=== PATIENT | male | born 1970 | race Hispanic/Latino ===

== ENCOUNTER 2020-06-14 14:26 | Emergency (ER) | payer SELFPAY ==
[2020-06-14 15:34] LABS: Alanine Aminotransferase 68 units/L (7-56); Albumin 2.8 g/dL (3.9-5); Blood Urea Nitrogen 2 mg/dL (9-20); Calcium 8.2 mg/dL (8.4-10.2); Hemolysis Index 1
[2020-06-14 15:39] LABS: Hemoglobin 10.9 gm/dl (11.8-15.2); Mean Corpuscular HGB Conc 34 % (32-34); Mean Corpuscular Volume 106 fl (84-94); Platelet Count 207 K/mm3 (140-440); Red Blood Count 3.02 M/mm3 (3.65-5.03); Red Cell Distribution Width 15.2 % (13.2-15.2)
[2020-06-14 15:53] LABS: BUN/Creatinine Ratio 3
[2020-06-14 16:29] LABS: Bilirubin,Urine NEG (Negative); Blood,Urine NEG (Negative); Color,Urine Yellow (Yellow); Protein,Urine <15 mg/dL mg/dL (Negative); Urobilinogen,Urine < 2.0 mg/dL (<2.0); WBC,Urine < 1.0 /HPF (0.0-6.0)
--- NOTE | 2020-06-14 17:09 | Emergency Department Report ---
ED General Adult HPI - General Chief complaint: Abdominal Pain Stated complaint: STOMACH PAIN, NAUSEA, Time Seen by Provider: 06/14/20 15:36 Source: patient Mode of arrival: Ambulatory Limitations: No Limitations - History of Present Illness Initial comments: 49-year-old -N[place]alese male patient without prior medical history presents with complaints of abdominal distention, abdominal mass, nausea, and decreased appetite for 4 months and bilateral lower leg edema x3 weeks. Patient states he is having multiple bowel movements a day of which some are very light in color. He denies any melena/hematochezia, vomiting, fever/chills/sweats, chest pain, or shortness of breath. He admits to drinking about 12 beers a day for many years. He states his father had history of liver cancer due to alcoholism. He states there is some abdominal pain that is constant in dull in nature. He denies having noticed any yellowing of his skin or eyes. History of inguinal hernia repair -: Gradual - Related Data Previous Rx's Medication Instructions Recorded Last Taken Type Pantoprazole [Protonix] 40 mg PO QAM #30 tablet 06/14/20 Unknown Rx traMADoL [Ultram 50 MG tab] 50 mg PO Q8HR PRN #6 tablet 06/14/20 Unknown Rx Allergies Allergy/AdvReac Type Severity Reaction Status Date / Time No Known Allergies Allergy Unverified 06/14/20 14:50 ED Review of Systems ROS: Stated complaint: STOMACH PAIN, NAUSEA, Other details as noted in HPI Constitutional: malaise. denies: chills, diaphoresis, fever, weakness Eyes: denies: eye pain, vision change Respiratory: denies: cough, shortness of breath Cardiovascular: denies: chest pain Gastrointestinal: abdominal pain, nausea. denies: vomiting, diarrhea, constipation, hematemesis, melena, hematochezia Genitourinary: denies: urgency, dysuria, frequency, hematuria Musculoskeletal: denies: back pain, joint swelling Skin: denies: rash, lesions, change in color Neurological: denies: headache, numbness, paresthesias Hematological/Lymphatic: denies: easy bleeding, easy bruising ED Past Medical Hx - Past Medical History Previous Medical History?: Yes Hx Hypertension: Yes - Surgical History Past Surgical History?: Yes Additional Surgical History: hernia - Social History Smoking Status: Never Smoker Substance Use Type: Alcohol - Medications Home Medications: Home Medications Medication Instructions Recorded Confirmed Last Taken Type Pantoprazole [Protonix] 40 mg PO QAM #30 tablet 06/14/20 Unknown Rx traMADoL [Ultram 50 MG tab] 50 mg PO Q8HR PRN #6 tablet 06/14/20 Unknown Rx ED Physical Exam - General Limitations: No Limitations General appearance: alert, in no apparent distress - Head Head exam: Present: atraumatic, normocephalic - Eye Eye exam: Present: normal appearance, scleral icterus (Mild bilateral) - ENT ENT exam: Present: mucous membranes moist - Neck Neck exam: Present: normal inspection. Absent: tenderness, full ROM, lymphadenopathy - Respiratory Respiratory exam: Present: normal lung sounds bilaterally. Absent: respiratory distress - Cardiovascular Cardiovascular Exam: Present: regular rate, normal rhythm. Absent: systolic murmur, diastolic murmur, rubs, gallop - GI/Abdominal GI/Abdominal exam: Present: distended, tenderness (Mild epigastric and right upper quadrant), normal bowel sounds, mass (Firm epigastric/RUQ mass noted). Absent: guarding, rebound, rigid - Extremities Exam Extremities exam: Present: full ROM, other (Bilateral lower leg 3+ pitting edema noted without skin changes) - Back Exam Back exam: Present: full ROM - Neurological Exam Neurological exam: Present: alert, oriented X3, normal gait - Psychiatric Psychiatric exam: Present: normal affect, normal mood - Skin Skin exam: Present: warm, dry, intact, normal color. Absent: rash, erythema, ecchymosis ED Course Vital Signs 06/14/20 06/14/20 14:49 20:00 Temperature 98.1 F 98.1 F Pulse Rate 94 H 89 Respiratory 16 14 Rate Blood Pressure 124/80 107/70 O2 Sat by Pulse 99 99 Oximetry ED Medical Decision Making - Lab Data Result diagrams: 06/14/20 14:57 06/14/20 14:57 Lab Results 06/14/20 06/14/20 06/14/20 Range/Units 14:57 14:57 14:57 WBC 7.7 (4.5-11.0) K/mm3 RBC 3.02 L (3.65-5.03) M/mm3 Hgb 10.9 L (11.8-15.2) gm/dl Hct 32.0 L (35.5-45.6) % MCV 106 H (84-94) fl MCH 36 H (28-32) pg MCHC 34 (32-34) % RDW 15.2 (13.2-15.2) % Plt Count 207 (140-440) K/mm3 Add Manual Diff Complete Total Counted 100 Seg Neuts % (Manual) 86.0 H (40.0-70.0) % Band Neutrophils % 2.0 % Lymphocytes % (Manual) 8.0 L (13.4-35.0) % Reactive Lymphs % (Man) 0 % Monocytes % (Manual) 3.0 (0.0-7.3) % Eosinophils % (Manual) 0 (0.0-4.3) % Basophils % (Manual) 1.0 (0.0-1.8) % Metamyelocytes % 0 % Myelocytes % 0 % Promyelocytes % 0 % Blast Cells % 0 % Nucleated RBC % Not Reportable Seg Neutrophils # Man 6.6 (1.8-7.7) K/mm3 Band Neutrophils # 0.2 K/mm3 Lymphocytes # (Manual) 0.6 L (1.2-5.4) K/mm3 Abs React Lymphs (Man) 0.0 K/mm3 Monocytes # (Manual) 0.2 (0.0-0.8) K/mm3 Eosinophils # (Manual) 0.0 (0.0-0.4) K/mm3 Basophils # (Manual) 0.1 (0.0-0.1) K/mm3 Metamyelocytes # 0.0 K/mm3 Myelocytes # 0.0 K/mm3 Promyelocytes # 0.0 K/mm3 Blast Cells # 0.0 K/mm3 WBC Morphology Not Reportable Hypersegmented Neuts Not Reportable Hyposegmented Neuts Not Reportable Hypogranular Neuts Not Reportable Smudge Cells Not Reportable Toxic Granulation Not Reportable Toxic Vacuolation Not Reportable Dohle Bodies Not Reportable Pelger-Huet Anomaly Not Reportable Nereyda Rods Not Reportable Platelet Estimate Consistent w auto Clumped Platelets Not Reportable Plt Clumps, EDTA Not Reportable Large Platelets Not Reportable Giant Platelets Not Reportable Platelet Satelliting Not Reportable Plt Morphology Comment Not Reportable RBC Morphology Normal Dimorphic RBCs Not Reportable Polychromasia Not Reportable Hypochromasia Not Reportable Poikilocytosis Not Reportable Anisocytosis Not Reportable Microcytosis Not Reportable Macrocytosis Not Reportable Spherocytes Not Reportable Pappenheimer Bodies Not Reportable Sickle Cells Not Reportable Target Cells Not Reportable Tear Drop Cells Not Reportable Ovalocytes Not Reportable Helmet Cells Not Reportable [place] Bodies Not Reportable [place] Rings Not Reportable [place] Cells Not Reportable Bite Cells Not Reportable Crenated Cell Not Reportable Elliptocytes Not Reportable Acanthocytes (Spur) Not Reportable Rouleaux Not Reportable Hemoglobin C Crystals Not Reportable Schistocytes Not Reportable Malaria parasites Not Reportable Norberto Bodies Not Reportable Hem Pathologist Commnt No PT (12.2-14.9) Sec. INR (0.87-1.13) APTT (24.2-36.6) Sec. Sodium 131 L (137-145) mmol/L Potassium 3.5 L (3.6-5.0) mmol/L Chloride 91.2 L (98-107) mmol/L Carbon Dioxide 23 (22-30) mmol/L Anion Gap 20 mmol/L BUN 2 L (9-20) mg/dL Creatinine 0.6 L (0.8-1.3) mg/dL Estimated GFR > 60 ml/min BUN/Creatinine Ratio 3 % Glucose 125 H (75-100) mg/dL Calcium 8.2 L (8.4-10.2) mg/dL Total Bilirubin 4.10 H (0.1-1.2) mg/dL AST 272 H (5-40) units/L ALT 68 H (7-56) units/L Alkaline Phosphatase 495 H (35-129) units/L NT-Pro-B Natriuret Pep 329.3 (0-450) pg/mL Total Protein 6.0 L (6.3-8.2) g/dL Albumin 2.8 L (3.9-5) g/dL Albumin/Globulin Ratio 0.9 % Lipase 32 (13-60) units/L Urine Color (Yellow) Urine Turbidity (Clear) Urine pH (5.0-7.0) Ur Specific [place] (1.003-1.030) Urine Protein (Negative) mg/dL Urine Glucose (UA) (Negative) mg/dL Urine Ketones (Negative) mg/dL Urine Blood (Negative) Urine Nitrite (Negative) Urine Bilirubin (Negative) Urine Urobilinogen (<2.0) mg/dL Ur Leukocyte Esterase (Negative) Urine WBC (Auto) (0.0-6.0) /HPF Urine RBC (Auto) (0.0-6.0) /HPF Hepatitis A IgM Ab (NonReactive) Hep Bs Antigen (Negative) Hep B Core IgM Ab (NonReactive) Hepatitis C Antibody (NonReactive) 06/14/20 06/14/20 06/14/20 Range/Units 16:20 16:28 18:48 WBC (4.5-11.0) K/mm3 RBC (3.65-5.03) M/mm3 Hgb (11.8-15.2) gm/dl Hct (35.5-45.6) % MCV (84-94) fl MCH (28-32) pg MCHC (32-34) % RDW (13.2-15.2) % Plt Count (140-440) K/mm3 Add Manual Diff Total Counted Seg Neuts % (Manual) (40.0-70.0) % Band Neutrophils % % Lymphocytes % (Manual) (13.4-35.0) % Reactive Lymphs % (Man) % Monocytes % (Manual) (0.0-7.3) % Eosinophils % (Manual) (0.0-4.3) % Basophils % (Manual) (0.0-1.8) % Metamyelocytes % % Myelocytes % % Promyelocytes % % Blast Cells % % Nucleated RBC % Seg Neutrophils # Man (1.8-7.7) K/mm3 Band Neutrophils # K/mm3 Lymphocytes # (Manual) (1.2-5.4) K/mm3 Abs React Lymphs (Man) K/mm3 Monocytes # (Manual) (0.0-0.8) K/mm3 Eosinophils # (Manual) (0.0-0.4) K/mm3 Basophils # (Manual) (0.0-0.1) K/mm3 Metamyelocytes # K/mm3 Myelocytes # K/mm3 Promyelocytes # K/mm3 Blast Cells # K/mm3 WBC Morphology Hypersegmented Neuts Hyposegmented Neuts Hypogranular Neuts Smudge Cells Toxic Granulation Toxic Vacuolation Dohle Bodies Pelger-Huet Anomaly Nereyda Rods Platelet Estimate Clumped Platelets Plt Clumps, EDTA Large Platelets Giant Platelets Platelet Satelliting Plt Morphology Comment RBC Morphology Dimorphic RBCs Polychromasia Hypochromasia Poikilocytosis Anisocytosis Microcytosis Macrocytosis Spherocytes Pappenheimer Bodies Sickle Cells Target Cells Tear Drop Cells Ovalocytes Helmet Cells [place] Bodies [place] Rings [place] Cells Bite Cells Crenated Cell Elliptocytes Acanthocytes (Spur) Rouleaux Hemoglobin C Crystals Schistocytes Malaria parasites Norberto Bodies Hem Pathologist Commnt PT 14.3 (12.2-14.9) Sec. INR 1.09 (0.87-1.13) APTT 31.3 (24.2-36.6) Sec. Sodium (137-145) mmol/L Potassium (3.6-5.0) mmol/L Chloride (98-107) mmol/L Carbon Dioxide (22-30) mmol/L Anion Gap mmol/L BUN (9-20) mg/dL Creatinine (0.8-1.3) mg/dL Estimated GFR ml/min BUN/Creatinine Ratio % Glucose (75-100) mg/dL Calcium (8.4-10.2) mg/dL Total Bilirubin (0.1-1.2) mg/dL AST (5-40) units/L ALT (7-56) units/L Alkaline Phosphatase (35-129) units/L NT-Pro-B Natriuret Pep (0-450) pg/mL Total Protein (6.3-8.2) g/dL Albumin (3.9-5) g/dL Albumin/Globulin Ratio % Lipase (13-60) units/L Urine Color Yellow (Yellow) Urine Turbidity Clear (Clear) Urine pH 6.0 (5.0-7.0) Ur Specific [place] 1.003 (1.003-1.030) Urine Protein <15 mg/dl (Negative) mg/dL Urine Glucose (UA) Neg (Negative) mg/dL Urine Ketones Neg (Negative) mg/dL Urine Blood Neg (Negative) Urine Nitrite Neg (Negative) Urine Bilirubin Neg (Negative) Urine Urobilinogen < 2.0 (<2.0) mg/dL Ur Leukocyte Esterase Neg (Negative) Urine WBC (Auto) < 1.0 (0.0-6.0) /HPF Urine RBC (Auto) 1.0 (0.0-6.0) /HPF Hepatitis A IgM Ab Non-reactive (NonReactive) Hep Bs Antigen Non-reactive (Negative) Hep B Core IgM Ab Non-reactive (NonReactive) Hepatitis C Antibody Non-reactive (NonReactive) - Radiology Data Radiology results: report reviewed . US abdomen limited INDICATION: pain, abnormal liver enzymes COMPARISON: None. FINDINGS: Pancreas: No significant abnormality identified in the visualized portions of the pancreas. Abdominal aorta: No significant abnormality. IVC: Normal. Liver: Increased echogenicity. Gallbladder: The gallbladder is dilated. No gallbladder stones identified. No gallbladder wall thickening. No pericholecystic fluid. Bile ducts: The common bile duct measures 7 mm which is upper limits of normal. Right Kidney: No significant abnormality. Additional findings: No significant additional findings. IMPRESSION: Severe hepatic steatosis. CT ABDOMEN AND PELVIS WITH CONTRAST INDICATION / CLINICAL INFORMATION: epigastric mass, abdominal distension, LFTs abnorm. TECHNIQUE: Axial CT images were obtained through the abdomen and pelvis after 100 cc Omnipaque [address] scans at this location are performed using CT dose reduction for ALARA by means of automated exposure control. COMPARISON: None available. FINDINGS: LOWER CHEST: No significant abnormality. LIVER: Hepatomegaly, measuring 23 cm in craniocaudal dimension. The liver is diffusely hypoattenuating compatible with steatosis. There is focal fatty infiltration near the gallbladder fossa as well. GALLBLADDER: No significant abnormality. Distended without significant abnormality. No stones, wall thickening, or pericholecystic edema. BILE DUCTS: Mild prominence of the common bile duct. PANCREAS: No significant abnormality. SPLEEN: No significant abnormality. ADRENALS: No significant abnormality. RIGHT KIDNEY / URETER: No significant abnormality. LEFT KIDNEY / URETER: No significant abnormality. STOMACH / SMALL BOWEL: Small duodenal diverticulum. There are multiple prominent, fluid-filled loops of small bowel which demonstrate slight mucosal enhancement. COLON: No significant abnormality. APPENDIX: No significant abnormality. PERITONEUM: No free fluid. No free air. No fluid collection. LYMPH NODES: No significant adenopathy. AORTA / ARTERIES: No significant abnormality. IVC / VEINS: No significant abnormality. URINARY BLADDER: No significant abnormality. REPRODUCTIVE ORGANS: No significant abnormality. ADDITIONAL FINDINGS: None. SKELETAL SYSTEM: No significant abnormality. IMPRESSION: 1. Multiple prominent, fluid-filled loops of small bowel which demonstrate slight mucosal enhancement. These findings can be seen with an enteritis. 2. Hepatomegaly and hepatic steatosis with focal fatty infiltration near the gallbladder fossa. - Medical Decision Making 49-year-old -N[place]alese male patient without prior medical history presents with complaints of abdominal distention, abdominal mass, nausea, and decreased appetite for 4 months and bilateral lower leg edema x3 weeks. Patient states he is having multiple bowel movements a day of which some are very light in color. He denies any melena/hematochezia, vomiting, fever/chills/sweats, chest pain, or shortness of breath. He admits to drinking about 12 beers a day for many years. He states his father had history of liver cancer due to alcoholism. He states there is some abdominal pain that is constant in dull in nature. He denies having noticed any yellowing of his skin or eyes. History of inguinal hernia repair Hepatic function panel shows significant abnormalities. With a CT shows significant fatty liver and dilated loops of bowel consistent with possible enteritis. Patient denies any signs of GI bleed. White count is normal. Acute hepatitis panel is normal. No gallbladder disease noted on US. Discussed patient with Dr. Combs-agrees with disposition that patient is able to follow-up outpatient with GI. Discussed in great detail importance of alcohol cessation and strict return precautions in detail with patient who verbalized understanding. His vitals are normal and he is stable for discharge home. Critical care attestation.: If time is entered above; I have spent that time in minutes in the direct care of this critically ill patient, excluding procedure time. ED Disposition Clinical Impression: Abnormal liver enzymes, Enteritis, Alcohol induced fatty liver Disposition: DC-01 TO HOME OR SELFCARE Is pt being admited?: No Condition: Stable Instructions: Cirrhosis (ED), Abuse of Alcohol (ED), Leg Edema (ED) Prescriptions: Pantoprazole [Protonix] 40 mg PO QAM #30 tablet traMADoL [Ultram 50 MG tab] 50 mg PO Q8HR PRN #6 tablet PRN Reason: Pain Referrals: [facility] [Provider Group] - 2-3 Days
[2020-06-14 17:27] LABS: INR 1.09 (0.87-1.13)
[2020-06-14 17:28] LABS: Partial Thromboplastin Time 31.3 Sec. (24.2-36.6)
--- NOTE | 2020-06-14 18:02 | Cat Scan Report ---
CT ABDOMEN AND PELVIS WITH CONTRAST INDICATION / CLINICAL INFORMATION: epigastric mass, abdominal distension, LFTs abnorm. TECHNIQUE: Axial CT images were obtained through the abdomen and pelvis after 100 cc Omnipaque [address] scans at this location are performed using CT dose reduction for ALARA by means of automated exposure control. COMPARISON: None available. FINDINGS: LOWER CHEST: No significant abnormality. LIVER: Hepatomegaly, measuring 23 cm in craniocaudal dimension. The liver is diffusely hypoattenuatin g compatible with steatosis. There is focal fatty infiltration near the gallbladder fossa as well. GALLBLADDER: No significant abnormality. Distended without significant abnormality. No stones, wall t hickening, or pericholecystic edema. BILE DUCTS: Mild prominence of the common bile duct. PANCREAS: No significant abnormality. SPLEEN: No significant abnormality. ADRENALS: No significant abnormality. RIGHT KIDNEY / URETER: No significant abnormality. LEFT KIDNEY / URETER: No significant abnormality. STOMACH / SMALL BOWEL: Small duodenal diverticulum. There are multiple prominent, fluid-filled loops of small bowel which demonstrate slight mucosal enhancement. COLON: No significant abnormality. APPENDIX: No significant abnormality. PERITONEUM: No free fluid. No free air. No fluid collection. LYMPH NODES: No significant adenopathy. AORTA / ARTERIES: No significant abnormality. IVC / VEINS: No significant abnormality. URINARY BLADDER: No significant abnormality. REPRODUCTIVE ORGANS: No significant abnormality. ADDITIONAL FINDINGS: None. SKELETAL SYSTEM: No significant abnormality. IMPRESSION: 1. Multiple prominent, fluid-filled loops of small bowel which demonstrate slight mucosal enhancement . These findings can be seen with an enteritis. 2. Hepatomegaly and hepatic steatosis with focal fatty infiltration near the gallbladder fossa. Signer Name: Rico Stanford MD Signed: 06/14/2020 5:57 PM Workstation Name: [id number]
[2020-06-14 18:06] LABS: Band Neutrophils # (Manual) 0.2 K/mm3; Eosinophils % (Manual) 0 % (0.0-4.3); Total Cells Counted 100
[2020-06-14 18:11] LABS: Platelet Estimate Consistent w Auto; RBC Morphology Normal
[2020-06-14] MEDS ORDERED: MORPHINE 4 MG/1 ML INJ IV ONE (19:17)
[2020-06-14] MEDS ORDERED: ONDANSETRON 4 MG/2 ML INJ IV ONE (19:17)
[2020-06-14 19:31] LABS: Hepatitis B Surface Antigen Non-Reactive (Negative); Hepatitis C Virus Antibody Non-Reactive (NonReactive)
[2020-06-14 20:03] VITALS: BP 107/70
--- NOTE | 2020-06-14 20:55 | Ultrasound Report ---
. US abdomen limited INDICATION: pain, abnormal liver enzymes COMPARISON: None. FINDINGS: Pancreas: No significant abnormality identified in the visualized portions of the pancreas. Abdominal aorta: No significant abnormality. IVC: Normal. Liver: Increased echogenicity. Gallbladder: The gallbladder is dilated. No gallbladder stones identified. No gallbladder wall thicke angela. No pericholecystic fluid. Bile ducts: The common bile duct measures 7 mm which is upper limits of normal. Right Kidney: No significant abnormality. Additional findings: No significant additional findings. IMPRESSION: Severe hepatic steatosis. Signer Name: Emiliano Conner MD Signed: 06/14/2020 8:51 PM Workstation Name: [id number]
[2020-06-14] MEDS ORDERED: SODIUM CHLORIDE 0.9% 1000 ML 1,000 ML IV ONE (21:12)
== END 2020-06-14 22:45 | disposition home or self-care (01) ==
LOC: ED 14:26
DX: R94.5 Abnormal results of liver function studies (principal); K52.9 Noninfective gastroenteritis and colitis, unspecified; K70.0 Alcoholic fatty liver; I10 Essential (primary) hypertension; Z79.899 Other long term (current) drug therapy
CPT/HCPCS: 36415; 74177; 76705; 80053; 80074; 81001; 83690; 83880; 85007; 85025; 85610; 85730; 96361; 96374; 96375; 99284; J2270; J2405; J7030; Q9967